=== PATIENT | male | born 1960 | race African-American/Black ===

== ENCOUNTER 2017-05-17 09:45 | Outpatient (CLI) | payer SELFPAY ==
[~2017-05-17] VITALS: Ht 177.8 cm; Wt 81.9 kg
--- NOTE | ~2017-05-17 | HP ---
PATIENT: BIJAL ZAMORA MEDICAL RECORD: [id number] ACCOUNT: [id number] LOCATION:[address] : 62 ADMISSION DATE: 05/17/17 HISTORY AND PHYSICAL EXAMINATION ADMITTING DIAGNOSES: 1. Chest pain. 2. Abnormal ECG. 3. Viral-like illness. HISTORY OF PRESENT ILLNESS: This is a gentleman with no previous cardiac history, who presents to [facility] with multiple days of chest pain that has been going on for 6 days. His EKG does have some ST elevation, but it appears to be relatively diffuse almost like a pericarditis pattern. He continues to have the episodes of chest pain. There are some atypical components that it is worse with deep inspiration. It is not positional elsewise. PHYSICAL EXAMINATION: GENERAL APPEARANCE: Well-nourished, well-developed, appears stated age. Level of distress, comfortable. PSYCHIATRIC: Mental status, alert, normal affect. Orientation, oriented to time, place and person. EYES: Lids and conjunctiva, noninjected. No discharge, no pallor. ENT: Lips, teeth, gums, normal dentition. Oropharynx, no cyanosis, no pallor. NECK: Carotid arteries, bilateral normal upstroke, no bruits, no thrills. JUGULAR VEINS: No jugular venous pressure or distention. CERVICAL LYMPH NODES: Nontender, nonenlarged. THYROID: Not enlarged. Nontender. No nodules. LUNGS: Respiratory effort, unlabored. CHEST: Normal curvature. No thoracic deformity. No chest wall tenderness. Percussion, resonant. Auscultation, clear. No wheezes, no rales, no rhonchi. CARDIOVASCULAR: Precordial exam, nondisplaced. No heaves or pericardial thrills. Rate and rhythm, regular. Heart sounds, normal S1, normal S2. No S3, no gallop, no rub. Systolic murmur, not heard. Diastolic murmur, not heard. EXTREMITIES: No cyanosis, no edema. Peripheral pulses, full and equal in all extremities, except as noted. No bruits appreciated. ABDOMEN: Soft, nondistended. Normal aorta. No bruit. Nontender. No masses. Liver, nontender, no hepatomegaly. Spleen, nontender, no splenomegaly. MUSCULOSKELETAL: No joint tenderness. No joint swelling. No erythema. NEUROLOGICAL: Normal gait, normal strength, normal tone. SKIN: Warm and dry. OVERALL IMPRESSION: Chest pain with abnormal ECG. We will proceed with coronary angiography due to the ST elevation on EKG, but most likely this is not ischemic heart disease. Most likely, this is pericarditis in relation to his viral-like illness. Further care depends upon the findings of the catheterization and we will get an echocardiogram as well. TRANSINT:[id number] Voice Confirmation ID: [id number] DOCUMENT ID: [id number] HISTORY AND PHYSICAL [id number] BIJAL ZAMORA JEFFREY MD at 0956 CC: [id number] DICTATION DATE: 05/17/17 1006 FOOD PROCESSING SCIENTIST: 05/17/17 1025 ADM IN [facility] [address] [place] [address]
--- NOTE | ~2017-05-17 | OP ---
PATIENT NAME: BIJAL ZAMORA MEDICAL RECORD: [id number] :62 LOCATION:D.M2 D.2135 ADMISSION DATE:05/17/17 SURGEON: PAULINO DAVIS MD DATE OF OPERATION: 05/17/2017 PROCEDURES: 1. PTCA stent to LAD. 2. Left heart catheterization. 3. Selective coronary angiography. 4. Left ventriculogram. INDICATION: Angina and coronary artery disease. PROCEDURE IN DETAIL: After informed consent was obtained and after detailed explanation of risks, benefits as well as alternative therapies, the patient elected to proceed with angiogram and angioplasty. The right femoral area was prepped and draped in normal sterile fashion. The right femoral artery was cannulated via modified Seldinger technique with placement of 6-Japanese sheath. All catheters exchanged through this sheath. FINDINGS: The left ventriculogram was performed in the standard 30-degree JENSEN view reveals good cardiac wall motion throughout all segments. Overall ejection fraction estimated 60%. SELECTIVE CORONARY ANGIOGRAPHY: 1. Left main showed no significant angiographic disease. 2. Left anterior descending has a long 80% stenosis in the mid vessel. 3. Left circumflex shows moderate irregularities, but no flow-limiting stenosis. 4. Right coronary artery has moderate irregularities, but no flow-limiting stenosis. PTCA STENT OF THE LAD: The stent used was a 2.25 x 34 mm Marcell. Result was 0% residual stenosis. OVERALL IMPRESSION: Successful percutaneous transluminal coronary angioplasty stent of the left anterior descending going from 80% initial stenosis to 0% residual. TRANSINT:[id number] Voice Confirmation ID: [id number] DOCUMENT ID: [id number] PAULINO ADVIS MD at 0956 CC: [id number] DICTATION DATE: 05/17/17 1027 STRENGTH AND CONDITIONING COACH: 05/17/17 1126 [place] [address]
--- NOTE | ~2017-05-17 | EC ---
PATIENT:BIJAL ZAMORA DATE OF SERVICE: 05/17/17 SEX: M MEDICAL RECORD: [id number] DATE OF : 62 LOCATION:D.M2 D.213 AGE OF PATIENT: 57 ADMISSION DATE: 05/17/17 REFERRING PHYSICIAN: INTERPRETING PHYSICIAN: PAULINO MÁRQUEZ MD ECHOCARDIOGRAM REPORT ECHO CHARGES 4 ECHO COMPLETE CLINICAL DIAGNOSIS: CP ECHOCARDIOGRAPHIC MEASUREMENTS (adult normal given) AC root (d.<3.7cm) 3.3 cm LV Septum d (<1.2 cm> 1.5 cm Valve Excursion 1.5 cm LV Septum (systole) 2.0 cm Left Atria (s.<4.0cm> 3.5 cm LVPW d(<1.2cm) 1.4 cm RV (d.<2.3cm) 2.3 cm LVPW (sytole) 2.2 cm LV diastole(<5.6CM) 5.9 cm MV E-F(>70mm/sec) cm LV systole 3.8 cm LVOT Diameter 2.0 cm MV exc.(>10mm) cm Est.ejection fraction (50-75%) % Pericardial Effusion N DOPPLER: LVIT cm/sec A 86.0 cm/sec E 153 cm/sec LA cm/sec RVSP 30.2 mmHg LVOT 108 cm/sec AOP1/2T 776.0m/s Asc. Ao 198 cm/sec RVOT 57.0 cm/sec RA cm/sec PA 79.0 cm/sec AV Gradient Peak 16.0 mmHg AV Mean 7.0 mmHg AV Area 1.7 cm MV Gradient Peak 11.0 mmHg MV Mean 2.3 mmHg MV Area cm COMMENTS: Analysis Engineer: Laura RICEOE Tax Assistant: 1 Dr. Márquez TAPE# PACS DATE OF SERVICE: 05/17/2017 Echocardiogram FINDINGS: 1. Left ventricular chamber size is within normal limits. Left ventricular systolic function is normal. Overall ejection fraction estimated at 55%. 2. Left atrium is within normal limits at 3.5 cm. Right atrium and right ventricular chamber sizes are mildly dilated. 3. Valvular structures have normal structure and motion. ECHOCARDIOGRAM REPORT [id number] BIJAL ZAMORA 4. Doppler interrogation reveals moderate aortic insufficiency, mild mitral regurgitation, mild tricuspid regurgitation, no other valvular insufficiency or stenosis. Pulmonary systolic pressure is normal estimated 30 mmHg. 5. No evidence of pericardial effusion or left ventricular thrombus. TRANSINT:[id number] Voice Confirmation ID: [id number] DOCUMENT ID: [id number] PAULINO MÁRQUEZ MD CC: [id number] DICTATION DATE: 05/17/17 1252 VAMP STITCHER: 05/17/17 1302 ADM IN [facility] [address] [place] [address]
--- NOTE | ~2017-05-17 | DS ---
PATIENT:BIJAL ZAMORA :62 MEDICAL RECORD: [id number] DISCHARGE SUMMARY ADMISSION DATE: 05/17/17 DISCHARGE DATE: DISCHARGE DIAGNOSES: 1. Unstable angina. 2. Coronary artery disease. 3. Percutaneous transluminal coronary angioplasty stent left anterior descending this admission. HOSPITAL COURSE: This is a gentleman who presents with unstable anginal symptomatology, found to have single vessel disease to the LAD, underwent successful PTCA stent of the LAD, discharged home with the addition of aspirin and Plavix to his medical regimen. We will follow up with [facility] in 1 month. TRANSINT:[id number] Voice Confirmation ID: [id number] DOCUMENT ID: [id number] PAULINO DAVIS MD CC: [id number] DICTATION DATE: 05/18/1755 CIRCULAR HEAD SAW OPERATOR: 05/18/17 1056 ADM IN [place] [id number] [place] [address]
--- NOTE | ~2017-05-17 | HEMODYNAMI ---
PATIENT:BIJAL ZAMORA MEDICAL RECORD: [id number] : 62 LOCATION:[address] [id number] ADMISSION DATE: 05/17/17 Generatedon:05/17/201710:27 Patient name: BIJAL ZAMORA Patient #: [id number] SSN: : 1960 Date of study: 05/17/2017 Page: Of Hemodynamic Procedure Report Patient Data Patient Demographics Procedure consent was obtained First Name: BIJAL Gender: Male Last Name: NOAH : 1960 Patient #: [id number] Age: 57 year(s) Race: Black Additional ID: [id number] Contact details [address]: [address] [place] [address] State: [place] City: [place] Zip code: [address] Past Medical History Allergies: No known allergies Admission Admission Data Admission Date: 05/17/2017 Admission Time: 9:45 Room #: [facility] Procedure Procedure Types Cath Procedure Diagnostic Procedure LHC LHC w/Coronaries PCI Procedure Coronary Stent Coronary Stent Initial Procedure Description Procedure Date Procedure Date: 05/17/2017 Procedure Start Time: 10:11 Procedure End Time: 10:25 Procedure Staff Name Function Bert Márquez MD Performing Physician Yara Hills RT Monitor Jennyfer Bryant RT Scrub Elliott Burns RN Nurse Procedure Data Cath Procedure Fluoroscopy Diagnostic fluoroscopy Total fluoroscopy Time: 4 time: 4 min min Diagnostic fluoroscopy Total fluoroscopy dose: 491 dose: 491 mGy mGy Contrast Material Contrast Material Type Amount (ml) Isovue 300 91 Entry Location Entry Primary Successful Side Size Upsize Upsize Entry Closure Succes sful Closure Location (Fr) 1 (Fr) 2 (Fr) Remarks Device Remarks Femoral Right 6 Fr Exoseal artery Short Estimated blood loss: 10 ml Diagnostic catheters Device Type Used For End Catheter Placement MULTIPACK Pigtail 5 Fr Procedure catheter MULTIPACK JL 4.0 5Fr Procedure catheter MULTIPACK 3DRC 5Fr Procedure catheter Procedure Complications No complications Procedure Medications Medication Administration Route Dosage 0.9% NaCl I.V. 100 ml/hr Oxygen NC 2 l/min Heparin Flush Bag added to field 2 bags (1000units/500ml NS) Lidocaine 2% added to field 20 Versed I.V. 2 mg Fentanyl I.V. 100 mcg Heparin Bolus I.V. 4000 units Integrilin (Bolus I.V. 6.8 ml 2mg/ml) Integrilin (Bolus wasted 3.2 ml 2mg/ml) Plavix P.O. 600 mg Hemodynamics Rest Heart Rate: 68 (bpm) Snapshots Pre Cath Intra NCS Post Cath Vital Signs Time Heart Resp SPO2 etCO2 NIBP (mmHg) Rhythm Pain Sedation Rate (ipm) (%) (mmHg) Status Level (bpm) 10:04:37 66 12 97 0 167/94(142) NSR 0 (11) 10(A) , No pain 10:09:00 62 12 98 34.3 155/87(120) NSR 0 (11) 10(A) , No pain 10:13:18 67 14 95 36.6 149/86(122) NSR 0 (11) 10(A) , No pain 10:17:36 73 19 96 40.3 127/81(119) NSR 0 (11) 9(A) , No pain 10:21:42 68 15 96 43.3 139/88(120) NSR 0 (11) 10(A) , No pain Medications Time Medication Route Dose Verified Delivered Reason Notes Effectiveness by by 10:09:58 0.9% NaCl I.V. 100 Buffie Buffie Per physician ml/hr Katy Burns RN 10:10:17 Oxygen NC 2 Buffie Buffie Per physician l/min Katy Burns RN 10:10:31 Heparin Flush added 2 Buffie Buffie used for Bag to bags Katy Burns RN procedure (1000units/500ml field NS) 10:10:43 Lidocaine 2% added 20ml Buffie Buffie for local to vial Katy Burns RN anesthetic field 10:10:53 Versed I.V. 2 mg Buffie Buffie for sedation Katy Burns RN 10:11:02 Fentanyl I.V. 100 Buffie Buffie for sedation mcg Katy Burns RN 10:17:05 Heparin Bolus I.V. 4000 Buffie Buffie for units Katy Burns RN anticoagulation 10:17:24 Integrilin I.V. 6.8 Buffie Buffie for (Bolus 2mg/ml) ml Katy Burns RN anticoagulation 10:18:19 Integrilin wasted 3.2ml Buffie Buffie to sharp's (Bolus 2mg/ml) Katy Burns RN 10:24:56 Plavix P.O. 600 Buffie Buffie for mg Katy Burns RN antiplatelet therapy Procedure Log Time Note 9:45:46 Elliott Burns RN sent for patient. Start room use. 10:02:11 Diagnostic Cath Status : Emergency 10:03:06 Time tracking: Regular hours 10:03:12 Plan of Care:Hemodynamics will remain stable., Cardiac rhythm will remain stable., Comfort level will be maintained., Respiratory function will remain adequate., Patient/ family verbilizes understanding of procedure., Procedure tolerated without complication., Recovers from procedure without complications.. 10:03:14 Patient arrives emergently. 10:03:22 Patient received from PCU to CCL 2 Alert and oriented. Tansferred to table in Supine position. 10:03:26 Warm blankets applied, and bertha hugger turned on for patient comfort. 10:03:27 Correct patient and procedure confirmed by team. 10:03:30 Signed procedure consent form obtained from patient. 10:03:31 ECG and BP/O2 sat monitors applied to patient. 10:03:32 Vital chart was started 10:03:33 Baseline sample Acquired. 10:03:37 Rhythm: sinus rhythm 10:03:40 Full Disclosure recording started 10:03:53 H&P Date Dictated: 05/17/2017 New H&P dictated by physician.. 10:03:58 Pre-procedure instructions explained to patient. 10:03:59 Pre-op teaching completed and patient verbalized understanding. 10:04:02 Family unavailable. 10:04:21 Patient NPO since Midnight. 10:04:36 Patient allergic to No known allergies 10:04:40 Is the patient allergic to Iodine/contrast media? No. 10:04:42 Is patient on blood thinner?No 10:04:45 Patient diabetic? No. 10:04:47 ----Pre-sedation anethsthesia assessment.---- 10:04:50 Previous problem with sedation/anesthesia? No ? 10:04:52 Snore? Yes 10:04:53 Sleep apnea? No 10:05:10 Deviated septum? No 10:05:11 Opens mouth fully? Yes 10:05:12 Sticks out tongue? Yes 10:05:15 Airway obstruction? No ? 10:05:19 Dentures? No ? 10:05:42 Pre procedure: right dorsailis pedis pulse 3+ Increased pulse; moderate pressure to obliterate 10:05:57 Patient pain scale 3/10 DR. RYAN ALVAREZ. 10:06:07 IV patent on arrival in right antecubital, left antecubital with 0.9% NaCl at O. 10:06:22 Right groin area was prepped with chlora-prep and draped in sterile fashion 10:06:23 Alarms reviewed by R. N. 10:06:24 Sharps counted by scrub and verified by R.N. 10:06:26 Physician arrived 10:06:27 --------ALL STOP TIME OUT------ 10:06:28 Final Timeout: patient, procedure, and site verified with staff and physician. All members of the team are in agreement. 10:06:58 Right groin site verified by team. 10:07:05 Physical assessment completed. ASA score P 2 - A patient with mild systemic disease as per Bert Márquez MD. 10:07:09 Sedation plan: IV Moderate Sedation Medication:Versed, Fentanyl 10:09:58 0.9% NaCl 100 ml/hr I.V. was administered by Elliott Burns RN; Per physician; 10:10:17 Oxygen 2 l/min NC was administered by Elliott Burns RN; Per physician; 10:10:31 Heparin Flush Bag (1000units/500ml NS) 2 bags added to field was administered by Elliott Burns RN; used for procedure; 10:10:37 Use device set Femoral Dx 10:10:39 ACIST Syringe (04351) opened to sterile field. 10:10:40 Bag Decanter (2001S) opened to sterile field. 10:10:40 Medline Cath Pack ([id number]) opened to sterile field. 10:10:42 DIAGNOSTIC WIRE .035 260cm J wire (799460) opened to sterile field. 10:10:43 Lidocaine 2% 20ml vial added to field was administered by Elliott Burns RN; for local anesthetic; 10:10:49 ACIST Hand Control (55935) opened to sterile field. 10:10:49 ACIST Manifold (23724) opened to sterile field. 10:10:50 DIAGNOSTIC Multipack 5Fr catheter set ([id number]) opened to sterile field. 10:10:52 Tegaderm 4 x 4 (1626W) opened to sterile field. 10:10:53 Versed 2 mg I.V. was administered by Elliott Burns RN; for sedation; 10:10:53 PERCUTANEOUS ENTRY 19GA needle opened to sterile field. 10:11:02 Fentanyl 100 mcg I.V. was administered by Elliott Burns RN; for sedation; 10:11:06 Procedure started. 10:11:14 Local anesthetic to right femoral artery with Lidocaine 2% by Bert Márquez MD.INITIAL ACCESS ONLY 10:11:24 A 6 Fr Short sheath was inserted into the Right Femoral artery 10:11:43 j wire advanced. 10:11:52 A MULTIPACK Pigtail 5 Fr catheter was advanced over the wire and used for Procedure. 10:12:04 EF : 60 % 10:12:05 Catheter removed. 10:12:27 A MULTIPACK JL 4.0 5Fr catheter was advanced over the wire and used for Procedure. 10:12:42 LCA angiography performed. 10:13:34 Catheter removed. 10:13:47 A MULTIPACK 3DRC 5Fr catheter was advanced over the wire and used for Procedure. 10:16:55 INFLATOR Merit BasixCompak (ZY9537) opened to sterile field. 10:16:56 GUIDE 6FR XBLAD 3.5 catheter ([id number]) opened to sterile field. 10:17:05 Heparin Bolus 4000 units I.V. was administered by Elliott Burns RN; for anticoagulation; 10:17:10 6 Fr xblad 3.5 guide catheter was inserted over the wire 10:17:24 Integrilin (Bolus 2mg/ml) 6.8 ml I.V. was administered by Elliott Burns RN; for anticoagulation; 10:17:59 CHOICE PT Extra Support J 300cm guide wire ([id number]) opened to sterile field. 10:18:16 GUIDE 6FR XBLAD 4.0 catheter ([id number]) opened to sterile field. 10:18:19 Integrilin (Bolus 2mg/ml) 3.2ml wasted was administered by Elliott Burns RN; to sharp's; 10:18:26 Guide catheter removed. 10:18:33 6 Fr xblad 4 guide catheter was inserted over the wire 10:18:41 CHOICE X SUPPORT wire advanced. 10:18:43 Wire advanced across lesion. 10:19:57 Inflation Number: 1 A JANE OTW 2.25 x 34 stent ([id number]) was prepped and advanced across the Dist LAD. The stent was deployed at 15 BRETT for 0:10 (min:sec). 10:21:09 EXOSEAL 6Fr (EX600) opened to sterile field. 10:22:53 Wire removed. 10:22:55 Guide catheter removed. 10:23:04 Sheath removed intact; hemostasis achieved with Exoseal to the Right Femoral artery. 10:23:07 Procedure ended.(Physican Out) 10:23:36 Fluoroscopy time 04.00 minutes. 10:23:44 Fluoroscopy dose: 491 mGy 10:23:44 Flurop Dose total: 491 10:23:50 Contrast amount:Isovue 300 91ml. 10:24:02 Insertion/operative site no bleeding no hematoma. 10:24:07 Post-op/insertion site Right Femoral artery dressed using a 4 x 4 and Tegaderm. 10:24:09 Post Procedure Pulses reassessed and unchanged 10:24:12 Post-procedure physical assessment completed. ASA score P 2 - A patient with mild systemic disease as per Bert Márquez MD. 10:24:16 Post procedure rhythm: unchanged. 10:24:19 Estimated blood loss: 10 ml 10:24:27 Post procedure instruction explained to patient.Patient verbalizes understanding. 10:24:38 Procedure type changed to Cath procedure, Diagnostic procedure, LHC, LHC w/Coronaries, PCI procedure, Coronary Stent, Coronary Stent Initial 10:24:40 Procedure and supply charges have been captured, reviewed, submitted and are correct. 10:24:56 Plavix 600 mg P.O. was administered by Elliott Burns RN; for antiplatelet therapy; 10:25:15 Procedure Complication : No complications 10:25:17 Vital chart was stopped 10:25:18 See physician's report for complete and final results. 10:25:20 Report given to Pre/Post Procedure Room. 10:25:26 Patient transfered to Pre/Post Procedure Room with Stretcher. 10:25:28 Procedure ended. 10:25:28 Full Disclosure recording stopped 10:25:31 End room use (Document Last) 10:26:43 ACC-PCI Only Patient was given prescriptions, or instructed by Bert Márquez MD to start/continue the following medications upon discharge: Plavix Intervention Summary Intervention Notes Time ActionType Lesion and Equipment Action# Pressure Duration Attributes Used 10:19:57 Place stent Dist LAD JANE OTW 2.25 1 15 00:10 x 34 stent ([id number]) Device Usage Item Name Manufacture Quantity Catalog Number Hospital Part Current Min imal Lot# / Charge Number Stock Stock Serial# Code ACIST Syringe Acist 1 29580 131928 208711 313618 20 (10484) Medical Systems Inc Bag Decanter Microtek 1 2001S 449607 70045 791056 5 () Medical Inc. Medline Cath Cardinal 1 [id number] 710337 54846 988901 5 [employer] ([id number]) DIAGNOSTIC [facility] [place] 1 558337 389446 868528 920471 30 WIRE .035 260cm J wire (886001) ACIST Hand Acist 1 82004 024259 631459 147397 5 Control Medical (68300) Systems Inc ACIST Acist 1 28737 991337 756712 209860 5 Manifold Medical (37805) Systems Inc DIAGNOSTIC Cardinal 1 [id number] 599058 77892 263362 30 Multipack 5Fr Health catheter set ([id number]) Tegaderm 4 x 3M 1 1626W 002828 446269 646717 5 4 (1626W) PERCUTANEOUS [place] [employer] 1 [id number] 406893 644634 5 ENTRY 19GA needle MULTIPACK Cardinal 1 298157 5 Pigtail 5 Fr Health catheter MULTIPACK JL Cardinal 1 246309 5 4.0 5Fr Health catheter MULTIPACK Cardinal 1 271486 5 3DRC 5Fr Health catheter INFLATOR Merit 1 [id number] 101184 554748 283310 15 LinPrim Medical BasixCompak (BB2511) GUIDE 6FR Cardinal 1 [id number] 776118 853307 441844 10 XBLAD 3.5 Health catheter ([id number]) CHOICE PT [place] 1 [id number] 505393 290800 057885 5 Extra Support Scientific J 300cm guide wire ([id number]) GUIDE 6FR Cardinal 1 [id number] 374973 808595 030687 3 XBLAD 4.0 Health catheter (75554879) JANE OTW 2.25 Medtronic 1 [id number] 118076 91608 084671 5 [id number] x 34 stent ([id number]) EXOSEAL 6Fr Cardinal 1 EX600 426457 631265 401670 10 (EX600) Health Signature Audit [place] Time Signature Unsigned Intra-Procedure 05/17/2017 Yara Hills 10:27:08 AM RT(R) Signatures Monitor : Yara Hills Signature : RT Date : Time : [address] [address]
[2017-05-17 11:27] VITALS: BP 143/79
[2017-05-17 11:34] VITALS: BP 144/77; Ht 177.8 cm; Wt 81.9 kg
[2017-05-17 19:00] VITALS: BP 122/85
[2017-05-18] VITALS: BP 120/84
[2017-05-18 04:00] VITALS: BP 124/84
[2017-05-18 09:25] VITALS: BP 147/90
[2017-05-18] MEDS ORDERED: PLAVIX75 MG PO (10:29)
[2017-05-18] MEDS ORDERED: ASPIRIN81 MG PO (10:32)
[2017-05-18 11:46] VITALS: BP 135/89
== END 2017-05-18 13:19 | disposition home or self-care (01) ==
LOC: D.OPS 09:45 → D.MS 09:45 → D.M2 09:45 → EDSTATUS 11:30 → D.M2 05-18 13:19 → D.OPS 05-18 13:19
DX: I25.110 Atherosclerotic heart disease of native coronary artery with unstable angina pectoris (principal); I08.3 Combined rheumatic disorders of mitral, aortic and tricuspid valves; Z01.812 Encounter for preprocedural laboratory examination

== ENCOUNTER 2017-11-08 12:11 | Outpatient (CLI) | payer SELFPAY ==
[~2017-11-08] VITALS: Ht 177.8 cm; Wt 75.0 kg
--- NOTE | ~2017-11-08 | HEMODYNAMI ---
PATIENT:BIJAL ZAMORA MEDICAL RECORD: [id number] : 62 [facility] [id number] ADMISSION DATE: 11/08/17 Generatedon:11/08/201716:13 Patient name: BIJAL ZAMORA Patient #: [id number] SSN: : 1960 Date of study: 11/08/2017 Page: Of Hemodynamic Procedure Report Patient Data Patient Demographics Procedure consent was obtained First Name: BIJAL Gender: Male Last Name: NOAH : 1960 Patient #: [id number] Age: 57 year(s) Race: Black Additional ID: [id number] Contact details Address: [address] [place] [address] State: [place] City: [place] Zip code: [address] Past Medical History Allergies: No known allergies Admission Admission Data Admission Date: 11/08/2017 Admission Time: 12:47 Room #: D.E16 Procedure Procedure Types Cath Procedure Diagnostic Procedure LHC LHC w/Coronaries Sedation Charges Moderate Sedation up to 15 minutes PCI Procedure Coronary Stent Coronary Stent Initial Procedure Description Procedure Date Procedure Date: 11/08/2017 Procedure Start Time: 15:54 Procedure End Time: 16:12 Procedure Staff Name Function Bert Márquez MD Performing Physician Jennyfer Bryant RT Monitor Yara Hills RT Scrub Stevie Rebolledo RN Nurse Procedure Data Cath Procedure Fluoroscopy Diagnostic fluoroscopy Total fluoroscopy Time: 6.1 time: 6.1 min min Diagnostic fluoroscopy Total fluoroscopy dose: dose: 1215 mGy 1215 mGy Contrast Material Contrast Material Type Amount (ml) Isovue 300 146 Entry Location Entry Primary Successful Side Size Upsize Upsize Entry Closure Succes sful Closure Location (Fr) 1 (Fr) 2 (Fr) Remarks Device Remarks Femoral Right 5 Fr 6 Fr Exoseal artery Short Estimated blood loss: 10 ml Diagnostic catheters Device Type Used For End Catheter Placement MULTIPACK Pigtail 5 Fr Procedure catheter MULTIPACK JL 4.0 5Fr Procedure catheter MULTIPACK 3DRC 5Fr Procedure catheter Procedure Complications No complications Procedure Medications Medication Administration Route Dosage Oxygen etCO2 Nasal cannula 2 l/min Heparin Flush Bag added to field 2 bags (1000units/500ml NS) 0.9% NaCl I.V. 100 ml/hr Fentanyl I.V. 50 mcg Versed I.V. 1 mg Fentanyl I.V. 50 mcg Versed I.V. 1 mg Heparin Bolus I.V. 4000 units Hemodynamics Rest Heart Rate: 65 (bpm) Snapshots Pre Cath Intra NCS Post Cath Vital Signs Time Heart Resp SPO2 etCO2 NIBP (mmHg) Rhythm Pain Sedation Rate (ipm) (%) (mmHg) Status Level (bpm) 15:38:31 58 17 100 0 160/90(134) NSR 0 (11) 10(A) , No pain 15:43:15 65 16 100 0 135/78(104) NSR 0 (11) 10(A) , No pain 15:47:58 59 17 100 3 142/82(118) NSR 0 (11) 10(A) , No pain 15:52:41 59 16 100 35.3 128/82(97) NSR 0 (11) 10(A) , No pain 15:57:22 61 16 100 35.3 132/79(112) NSR 0 (11) 9(A) , No pain 16:02:04 71 17 100 33.8 120/74(100) NSR 0 (11) 9(A) , No pain 16:06:43 65 16 100 35.3 125/75(99) NSR 0 (11) 9(A) , No pain 16:11:07 63 16 100 36.8 129/78(100) NSR 0 (11) 9(A) , No pain Medications Time Medication Route Dose Verified Delivered Reason Notes Effectiveness by by 15:34:52 Oxygen etCO2 2 Bert Hubbard Per physician Nasal l/min Yulisa Rebolledo RN cannula 15:35:01 Heparin Flush added 2 Bert Hubbard used for Bag to bags Yulisa Rebolledo bait digger (1000units/500ml field NS) 15:36:55 0.9% NaCl I.V. 100 Bert Hubbard Per physician ml/hr Yulisa Rebolledo RN 15:52:26 Fentanyl I.V. 50 Bert Hubbard for sedation mcg Yulisa Rebolledo RN 15:52:33 Versed I.V. 1 mg Bert Hubbard for sedation Yulisa Rebolledo RN 15:55:14 Fentanyl I.V. 50 Bert Hubbard for sedation mcg Yulisa Rebolledo RN 15:55:19 Versed I.V. 1 mg Bert Hubbard for sedation Yulisa Rebolledo RN 16:00:03 Heparin Bolus I.V. 4000 Bert Hubbard for units Yulisa Rebolledo RN anticoagulation Procedure Log Time Note 15:16:10 Signed procedure consent form obtained from patient. 15:16:12 Time tracking: Regular hours (M-F 7:00 - 5:00) 15:16:15 Plan of Care:Hemodynamics will remain stable., Cardiac rhythm will remain stable., Comfort level will be maintained., Respiratory function will remain adequate., Patient/ family verbilizes understanding of procedure., Procedure tolerated without complication., Recovers from procedure without complications.. 15:17:23 Jennyfer Bryant RT(R) sent for patient. Start room use. 15:34:52 Oxygen 2 l/min etCO2 Nasal cannula was administered by Stevie Rebolledo RN; Per physician; 15:35:01 Heparin Flush Bag (1000units/500ml NS) 2 bags added to field was administered by Stevie Rebolledo RN; used for procedure; 15:36:52 Vital chart was started 15:36:55 0.9% NaCl 100 ml/hr I.V. was administered by Stevie Rebolledo RN; Per physician; 15:37:36 Patient received from ED to CCL 1 Alert and oriented. Tansferred to table in Supine position. 15:37:37 Warm blankets applied, and bertha hugger turned on for patient comfort. 15:37:38 Correct patient and procedure confirmed by team. 15:37:39 ECG and BP/O2 sat monitors applied to patient. 15:37:40 Baseline sample Acquired. 15:37:56 Rhythm: sinus rhythm 15:37:58 Full Disclosure recording started 15:38:06 H&P Date Dictated: 11/08/2017 Within 30 days and on chart., H&P Addendum completed by physician on day of procedure. (MUST COMPLETE FOR ALL OUTPATIENTS). 15:38:08 Pre-procedure instructions explained to patient. 15:38:13 Family unavailable. 15:38:17 Patient NPO since Breakfast. 15:38:23 Patient allergic to No known allergies 15:38:26 Is the patient allergic to Iodine/contrast media? No. 15:38:28 Was the patient premedicated? Yes 15:38:31 Is patient on blood thinner?Yes 15:38:35 ACC The patient was administered the following blood thiners within the last 24 hours: ACCPlavix 15:38:46 Patient diabetic? No. 15:38:50 Previous problem with sedation/anesthesia? No ? 15:38:51 Snore? Yes 15:38:52 Sleep apnea? No 15:38:53 Deviated septum? No 15:38:54 Opens mouth fully? Yes 15:38:55 Sticks out tongue? Yes 15:38:57 Airway obstruction? No ? 15:38:59 Dentures? No ? 15:39:02 Pre procedure: right dorsailis pedis pulse 2+ Normal; easily identifiable; not easily obliterated 15:39:05 Patient pain scale 0/10 ?. 15:39:14 IV patent on arrival in right hand with 0.9% NaCl at O. 15:44:57 Right groin area was prepped with chlora-prep and draped in sterile fashion 15:44:58 Alarms reviewed by R. N. 15:44:59 Sharps counted by scrub and verified by R.N. 15:46:47 --------ALL STOP TIME OUT------ 15:46:48 Final Timeout: patient, procedure, and site verified with staff and physician. All members of the team are in agreement. 15:46:49 Right groin site verified by team. 15:46:52 Physical assessment completed. ASA score P 2 - A patient with mild systemic disease as per Bert Márquez MD. 15:46:56 Sedation plan: IV Moderate Sedation Medication:Versed, Fentanyl 15:46:59 Use device set Femoral Dx 15:47:00 ACIST Syringe (84586) opened to sterile field. 15:47:01 Bag Decanter () opened to sterile field. 15:47:03 ACIST Hand Control (24108) opened to sterile field. 15:47:03 ACIST Manifold (26824) opened to sterile field. 15:47:04 Tegaderm 4 x 4 (1626W) opened to sterile field. 15:47:05 Medline Cath Pack ([id number]) opened to sterile field. 15:47:06 DIAGNOSTIC WIRE .035 260cm J wire (494443) opened to sterile field. 15:47:07 DIAGNOSTIC Multipack 5Fr catheter set (VN6637) opened to sterile field. 15:47:07 SHEATH Prelude 5Fr 0.035 (LXX-1X-47-035) opened to sterile field. 15:52:26 Fentanyl 50 mcg I.V. was administered by Stevie Rebolledo RN; for sedation; 15:52:33 Versed 1 mg I.V. was administered by Stevie Rebolledo RN; for sedation; 15:54:08 Procedure started. 15:54:16 Local anesthetic to right femoral artery with Lidocaine 2% by Bert Márquez MD.INITIAL ACCESS ONLY 15:55:04 A 5 Fr sheath was inserted into the Right Femoral artery 15:55:14 Fentanyl 50 mcg I.V. was administered by Stevie Rebolledo RN; for sedation; 15:55:19 Versed 1 mg I.V. was administered by Stevie Rebolledo RN; for sedation; 15:55:30 A MULTIPACK Pigtail 5 Fr catheter was advanced over the wire and used for Procedure. 15:55:45 LV gram done using JENSEN 15:55:47 Injector settings: Ml/sec: 10, Volume: 20, 15:56:08 EF : 35 % 15:56:14 Catheter removed. 15:56:29 A MULTIPACK JL 4.0 5Fr catheter was advanced over the wire and used for Procedure. 15:57:35 LCA angiography performed. 15:57:44 Catheter removed. 15:57:53 INFLATOR Merit BasixCompak (AK1184) opened to sterile field. 15:57:54 SHEATH 6FR [place] (TIG581) opened to sterile field. 15:58:00 CHOICE PT Extra Support 182cm wire ([id number]) opened to sterile field. 15:58:37 A MULTIPACK 3DRC 5Fr catheter was advanced over the wire and used for Procedure. 15:58:48 RCA angiography performed. 15:58:53 Catheter removed. 15:59:13 Sheath upsized to a 6 Fr Short. 15:59:38 GUIDE 6FR XB 3.5 catheter ([id number]) opened to sterile field. 15:59:48 6 Fr XB 3.5 guide catheter was inserted over the wire 16:00:03 Heparin Bolus 4000 units I.V. was administered by Stevie Rebolledo RN; for anticoagulation; 16:00:24 CHOICE ES 182 wire advanced. 16:02:06 Wire advanced across lesion. 16:02:33 Inflate balloon Inflation number: 1 A EUPHORA 2.5 x 30 Balloon ([id number]) was prepped and advanced across the Mid LAD, then inflated to 13 BRETT for 0:10 (min:sec). 16:03:01 Inflation number: 2 The EUPHORA 2.5 x 30 Balloon ([id number]) was reinflated across the Mid LAD, to 17 BRETT for 0:10 (min:sec). 16:03:30 Inflation number: 3 The EUPHORA 2.5 x 30 Balloon ([id number]) was reinflated across the Mid LAD, to 11 BRETT for 0:10 (min:sec). 16:04:05 Inflation number: 4 The EUPHORA 2.5 x 30 Balloon ([id number]) was reinflated across the Mid LAD, to 19 BRETT for 0:10 (min:sec). 16:05:27 Balloon removed over the wire. 16:06:41 Place stent Inflation Number: 5 A INTEGRITY RX 2.5 x 14 stent ([id number]) was prepped and advanced across the Mid LAD. The stent was deployed at 9 BRETT for 0:10 (min:sec). 16:08:00 Inflation number: 6 The stent balloon was then re-inflated across the Mid LAD to 15 BRETT for 0:10 (min:sec). 16:08:23 Stent catheter was removed intact over wire. 16:08:24 Wire removed. 16:08:24 Guide catheter removed. 16:08:39 EXOSEAL 6Fr (EX600) opened to sterile field. 16:08:56 Sheath removed intact; hemostasis achieved with Exoseal to the Right Femoral artery. 16:09:00 Procedure ended.(Physican Out) 16:09:32 Fluoroscopy time 06.10 minutes. 16:09:36 Flurop Dose total: 1215 16:09:36 Fluoroscopy dose: 1215 mGy 16:09:39 Contrast amount:Isovue 300 146ml. 16:09:42 Sharps counted by scrub and verified by R.N. 16:10:08 Post-op/insertion site Right Femoral artery dressed using a 4 x 4 and Tegaderm. 16:10:15 Post right femoral artery:stable, soft, clean and dry 16:10:46 Post-procedure physical assessment completed. ASA score P 2 - A patient with mild systemic disease as per Bert Márquez MD. 16:10:49 Post procedure rhythm: sinus rhythm 16:10:51 Estimated blood loss: 10 ml 16:10:53 Post procedure instruction explained to patient.Patient verbalizes understanding. 16:10:53 Patient needs reinforcement of post procedure teaching. 16:11:36 Procedure type changed to Cath procedure, Diagnostic procedure, LHC, LHC w/Coronaries, Sedation Charges, Moderate Sedation up to 15 minutes, PCI procedure, Coronary Stent, Coronary Stent Initial 16:12:21 Procedure and supply charges have been captured, reviewed, submitted and are correct. 16:12:23 Procedure Complication : No complications 16:12:25 Vital chart was stopped 16:12:26 See physician's report for complete and final results. 16:12:28 Report given to PCU. 16:12:31 Patient transfered to PCU with Bed. 16:12:33 Procedure ended. 16:12:33 Full Disclosure recording stopped 16:12:35 End room use (Document Last) Intervention Summary Intervention Notes Time ActionType Lesion and Equipment Action# Pressure Duration Attributes Used 16:02:33 Inflate Mid LAD EUPHORA 2.5 1 13 00:10 balloon x 30 Balloon ([id number]) 16:03:01 Reinflate Mid LAD EUPHORA 2.5 2 17 00:10 balloon x 30 Balloon ([id number]) 16:03:30 Reinflate Mid LAD EUPHORA 2.5 3 11 00:10 balloon x 30 Balloon ([id number]) 16:04:05 Reinflate Mid LAD EUPHORA 2.5 4 19 00:10 balloon x 30 Balloon ([id number]) 16:06:41 Place stent Mid LAD INTEGRITY RX 5 9 00:10 2.5 x 14 stent ([id number]) 16:08:00 Reinflate Mid LAD INTEGRITY RX 6 15 00:10 stent 2.5 x 14 balloon stent ([id number]) Device Usage Item Name Manufacture Quantity Catalog Number Hospital Part Current M inimal Lot# / Charge Number Stock Stock Serial# Code ACIST Syringe Acist 1 75072 315933 087928 771482 2 0 (14213) Medical Systems Inc Bag Decanter Microtek 1 578101 14663 914343 5 (2001S) Medical Inc. ACIST Hand Acist 1 62410 787019 708810 297853 5 Control (43096) Medical Systems Inc ACIST Manifold Acist 1 35657 040848 661656 623642 5 (21899) Medical Systems Inc Tegaderm 4 x 4 3M 1 1626W 115604 844980 746395 5 (1626W) Medline Cath Cardinal 1 [id number] 074315 04704 511323 5 Pack Health ([id number]) DIAGNOSTIC WIRE St Ken 1 000586 992762 107435 438574 3 0 .035 260cm J wire (640134) DIAGNOSTIC Cardinal 1 OD5469 316219 65683 153830 3 0 Multipack 5Fr Health catheter set (BY7311) SHEATH Prelude Merit 1 KGW-4R-55-035 119654 938986 206335 5 5Fr 0.035 Medical (MBM-4U-62-035) MULTIPACK Cardinal 1 429408 5 Pigtail 5 Fr Health catheter MULTIPACK JL Cardinal 1 833301 5 4.0 5Fr Health catheter INFLATOR Merit Merit 1 WH7200 446801 176023 853437 1 5 BasixCompaK-12 Techno Services Medical (HV6545) SHEATH 6FR Terumo 1 SGZ480 808621 669312 108607 4 0 [place] (UUJ439) CHOICE PT Extra Duke 1 [id number] 225541 952817 037210 5 Support 182cm Scientific wire ([id number]) MULTIPACK 3DRC Cardinal 1 112090 5 5Fr catheter Health GUIDE 6FR XB Cardinal 1 [id number] 677912 560440 745733 2 3.5 catheter Health (26149401) EUPHORA 2.5 x Medtronic 1 [id number] 244703 286536 039979 5 [id number] 30 Balloon ([id number]) INTEGRITY RX Medtronic 1 [id number] 207935 647657 801801 5 [id number] 2.5 x 14 stent ([id number]) EXOSEAL 6Fr Cardinal 1 EX600 779079 713023 686487 1 0 (EX600) Health Signature Audit [place] Stage Time Signature Unsigned Intra-Procedure 11/08/2017 Jennyfer Bryant 4:13:33 PM RT(R) Signatures Monitor : Jennyfer Bryant Signature : RT Date : Time : [address] [place] [address]
--- NOTE | ~2017-11-08 | HP ---
PATIENT: BIJAL GORDON MEDICAL RECORD: [id number] ACCOUNT: [id number] LOCATION:[address] : 62 ADMISSION DATE: 11/08/17 HISTORY AND PHYSICAL EXAMINATION DIAGNOSES: 1. Non-Q-wave myocardial infarction. 2. Coronary artery disease. 3. Previous percutaneous transluminal coronary angioplasty stent. HISTORY OF PRESENT ILLNESS: Mr. Gordon is status post PTCA stent in July. He stopped taking any antiplatelet medications last month. He began having chest pain last week. He thought it was musculoskeletal. His chest pain has worsened. He presents to [facility]. He had deep T-wave inversions anterolaterally. His troponin is elevated compatible with non-Q-wave myocardial infarction. PHYSICAL EXAMINATION: GENERAL APPEARANCE: Well-nourished, well-developed, appears stated age. Level of distress, comfortable. PSYCHIATRIC: Mental status, alert, normal affect. Orientation, oriented to time, place and person. EYES: Lids and conjunctiva, noninjected. No discharge, no pallor. ENT: Lips, teeth, gums, normal dentition. Oropharynx, no cyanosis, no pallor. NECK: Carotid arteries, bilateral normal upstroke, no bruits, no thrills. JUGULAR VEINS: No jugular venous pressure or distention. CERVICAL LYMPH NODES: Nontender, nonenlarged. THYROID: Not enlarged. Nontender. No nodules. LUNGS: Respiratory effort, unlabored. CHEST: Normal curvature. No thoracic deformity. No chest wall tenderness. Percussion, resonant. Auscultation, clear. No wheezes, no rales, no rhonchi. CARDIOVASCULAR: Precordial exam, nondisplaced. No heaves or pericardial thrills. Rate and rhythm, regular. Heart sounds, normal S1, normal S2. No S3, no gallop, no rub. Systolic murmur, not heard. Diastolic murmur, not heard. EXTREMITIES: No cyanosis, no edema. Peripheral pulses, full and equal in all extremities, except as noted. No bruits appreciated. ABDOMEN: Soft, nondistended. Normal aorta. No bruit. Nontender. No masses. Liver, nontender, no hepatomegaly. Spleen, nontender, no splenomegaly. MUSCULOSKELETAL: No joint tenderness. No joint swelling. No erythema. NEUROLOGICAL: Normal gait, normal strength, normal tone. SKIN: Warm and dry. REVIEW OF SYSTEMS: The patient reports easy bruising but reports no swollen glands. The patient reports no fever, no night sweats, no significant weight gain, no significant weight loss. No significant exercise tolerance. The patient reports no dry eyes, no irritation, no vision change. Patient reports no difficulty hearing and no ear pain. Patient reports no frequent nose bleeds or nose and sinus problems. Patient reports on arm pain on exertion. No shortness of breath while lying down. No history of heart murmur. Patient reports no cough, no wheezing or coughing up blood. Patient reports no abdominal pain, no vomiting. Normal appetite. No diarrhea and not vomiting blood. No nausea and no constipation. Patient reports no incontinence. No difficulty urinating. No hematuria. No increased frequency. Patient reports no muscle aches. No weakness, no arthralgias, no back pain. No swelling of the extremities. Patient reports no abnormal mole, no jaundice, no rashes. Reports HISTORY AND PHYSICAL [id number] BRIM,BIJAL no loss of consciousness. No weakness and no numbness. No seizures, dizziness, or headaches. The patient reports no depression, no sleep disturbance, feeling safe in a relationship and no alcohol abuse. Patient reports on fatigue. Reports no runny nose or sinus pressure. No itching, no hives, and no frequent sneezing. OVERALL IMPRESSION: Increasing chest pain with elevated troponin, no doubt he has recurrent hemodynamically significant coronary artery disease. At this time, we will load with Plavix. He has already received aspirin. Proceed with coronary angiography. TRANSINT:[id number] Voice Confirmation ID: [id number] DOCUMENT ID: [id number] PAULINO DAVIS MD at 0930 CC: [id number] DICTATION DATE: 11/08/17 1219 ARCHITECTURE INSTRUCTOR: 11/08/17 1231 ADM IN [place] [id number] [place] [address]
--- NOTE | ~2017-11-08 | OP ---
PATIENT NAME: BIJAL ZAMORA MEDICAL RECORD: [id number] :62 LOCATION:D.M2 D.2117 ADMISSION DATE:11/08/17 SURGEON: PAULINO DAVIS MD DATE OF OPERATION: 11/08/2017 PROCEDURES: 1. PTCA and stent, LAD. 2. Left heart catheterization. 3. Selective coronary angiography. 4. Left ventriculogram. INDICATIONS: Unstable angina and coronary disease. PROCEDURE IN DETAIL: After informed consent was obtained and after detailed description of risks and benefits as well as alternative therapies, the patient elected to proceed with angiogram and angioplasty. The right femoral area was prepped and draped in normal sterile fashion. Right femoral artery was cannulated via modified Seldinger technique with placement of 6-Irish sheath. All catheters were exchanged through the sheath. FINDINGS: The left ventriculogram was performed in standard 30-degree JENSEN view, reveals global hypokinesis throughout all segments. Overall ejection fraction is estimated at 30% to 35%. SELECTIVE CORONARY ANGIOGRAPHY: 1. Left main is with no significant angiographic disease. 2. Left anterior descending has previously placed stents. There appears to be thrombus in the mid section of the stents and in the distal aspect of the stents. 3. Left circumflex has mild irregularities, but no flow-limiting stenosis. 4. Right coronary has mild irregularities, but no flow-limiting stenosis. PTCA OF THE LAD: We ballooned this with a 2.5 balloon. Multiple inflations were made. There was an intimal dissection at the end of the stent. We stented this with a 2.5 x 14-mm Integrity. Result was 0% residual stenosis. OVERALL IMPRESSION: Significant stenosis and thrombosis of the previously placed stents in the LAD from Plavix noncompliance. Balloon, PTCA, and stent of this resolved the thrombosis and stenosis with yarsanism of MARK-3 flow. TRANSINT:[id number] Voice Confirmation ID: [id number] DOCUMENT ID: [id number] PAULINO DAVIS MD at 0930 CC: [id number] DICTATION DATE: 11/08/17 1613 PROJECT DEVELOPER: 11/08/17 1710 [place] [address]
--- NOTE | ~2017-11-08 | DS ---
PATIENT:BIJAL GORDON :62 MEDICAL RECORD: [id number] DISCHARGE SUMMARY ADMISSION DATE: 11/08/17 DISCHARGE DATE: 11/09/17 DIAGNOSES: 1. Non-Q-wave myocardial infarction. 2. Percutaneous transluminal coronary angioplasty stent left anterior descending this admission. 3. Antiplatelet therapy, noncompliant. HOSPITAL COURSE: Mr. Gordon presents with chest pain and a mildly elevated troponin. He is noncompliant with all medications. He was previously on aspirin and Plavix. He ran out of Plavix, came to our office, got samples of Brilinta, but has been out of the Brilinta for over a month. He has been; however, doing methamphetamines. He presents with acute chest pain syndrome, found to have significant thrombus in the LAD at the previously placed stent and underwent PTCA of this plus stent placement distal to this. He was discharged home, given samples of Brilinta and aspirin. He was not given a prescription for beta-tony or statin as he states he will not buy any medications. At this time, we will follow up as previously scheduled. Hopefully, he will take the sample medication we have given him. TRANSINT:[id number] Voice Confirmation ID: [id number] DOCUMENT ID: [id number] PAULINO DAVIS MD at 1752 CC: [id number] DICTATION DATE: 11/09/1736 TIE PULLER: 11/09/17 1150 DIS IN 11/09/17 [place] [address]
[~2017-11-08 12:11] MED LIST: ASPIRIN81 MG PO; PLAVIX75 MG PO
[2017-11-08 13:30] VITALS: BP 153/84
[2017-11-08 14:01] VITALS: BP 149/78
[2017-11-08 14:30] VITALS: BP 150/84
[2017-11-08 15:00] VITALS: BP 130/70
[2017-11-08 19:33] VITALS: BP 127/76; Ht 177.8 cm; Wt 75.0 kg
[2017-11-08 20:36] VITALS: BP 127/76
[2017-11-09 04:59] VITALS: BP 108/68
[2017-11-09 07:39] VITALS: BP 126/71
[2017-11-09] MEDS ORDERED: BRILINTA90 MG PO (10:34)
== END 2017-11-09 13:07 | disposition home or self-care (01) ==
LOC: OBSVTIME → D.CATH 12:11 → D.ER 12:11 → D.EDHOLD 12:47 → D.M2 12:47 → OBSVTIME 12:48 → EDSTATUS 14:00 → D.ER 15:26 → D.M2 17:27 → D.EDHOLD 17:27 → D.CATH 11-09 13:07 → D.M2 11-09 13:07
DX: I21.4 Non-ST elevation (NSTEMI) myocardial infarction (principal); I25.110 Atherosclerotic heart disease of native coronary artery with unstable angina pectoris; Z95.5 Presence of coronary angioplasty implant and graft; Z91.14 Patient's other noncompliance with medication regimen; Z01.812 Encounter for preprocedural laboratory examination